=== PATIENT | female | born 1990 | race American Indian/Alaskan Native ===

== ENCOUNTER 2018-03-04 12:57 | Emergency (ER) | payer MEDICAID ==
[2018-03-04 13:06] VITALS: BP 131/80
--- NOTE | 2018-03-04 15:09 | Emergency Department Report ---
ED Shortness of Breath HPI - General Chief Complaint: Dyspnea/Respdistress Stated Complaint: SOB Source: patient Mode of arrival: Ambulatory Limitations: No Limitations - History of Present Illness Initial Comments: Pratima is a healthy 28-year-old female who presents with chest tightness and shortness of breathafter smoking Black and mild cigar and taking a pill of Zoloft. She started taking Zoloft 12 days ago on the for fluctuating moods. She's been very angry and irritable for the last year after the . Child. She was concern for depression. Her mother and life partner both have witnessed severe mood swings. 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 She did consider taking oral contraceptives. However she does not feel that she could adhere to this form of control without getting . Chest pain and chest tightness and shortness of breath resolved. She felt as if something was squeezing the air out of her. MD Complaint: shortness of breath, chest pain -: Sudden, hour(s) (1) Severity: moderate Quality: other (tightness) Improves With: rest Worsens With: nothing - Related Data Allergies Allergy/AdvReac Type Severity Reaction Status Date / Time No Known Allergies Allergy Unverified 03/04/18 13:06 ED Review of Systems ROS: Stated complaint: SOB Other details as noted in HPI Comment: All other systems reviewed and negative Constitutional: denies: fever, malaise Respiratory: denies: cough Cardiovascular: chest pain. denies: palpitations ED Past Medical Hx - Past Medical History Previous Medical History?: No - Surgical History Past Surgical History?: No - Social History Smoking Status: Current Every Day Smoker Substance Use Type: None ED Physical Exam - General Limitations: No Limitations General appearance: alert, in no apparent distress - Head Head exam: Present: atraumatic, normocephalic - Eye Eye exam: Present: normal appearance - ENT ENT exam: Present: mucous membranes moist - Neck Neck exam: Present: normal inspection - Respiratory Respiratory exam: Present: normal lung sounds bilaterally. Absent: respiratory distress, wheezes, rales, rhonchi - Cardiovascular Cardiovascular Exam: Present: regular rate, normal rhythm, normal heart sounds. Absent: systolic murmur, diastolic murmur, rubs, gallop - GI/Abdominal GI/Abdominal exam: Present: soft, normal bowel sounds. Absent: distended, tenderness, guarding, rebound - Extremities Exam Extremities exam: Present: normal inspection - Back Exam Back exam: Present: normal inspection - Neurological Exam Neurological exam: Present: alert, oriented X3 - Psychiatric Psychiatric exam: Present: normal affect, normal mood. Absent: depressed, anxious, flat affect, manic, homicidal ideation, suicidal ideation - Skin Skin exam: Present: warm, dry, intact, normal color. Absent: rash ED Course Vital Signs 03/04/18 03/04/18 13:01 14:54 Temperature 98 F Pulse Rate 68 Respiratory 16 19 Rate Blood Pressure 131/80 O2 Sat by Pulse 99 Oximetry ED Medical Decision Making - Medical Decision Making Ms. Estes presents with chest tightness and shortness of breath shortly after smoking tobacco and taking sertraline. I suspect adverse effect of both tobacco use and medication. No indication of PE or ACS. No indication of arrhythmia. I recommended coping mechanisms such as meditation andn exercise. Blanca smokes 2 blunts of marijuana daily. I have asked her to consider decreasing her use to 1 blunt a day. She may be a candidate for IUD. It appears that hormonal therapy is a contributing factor to her mood swings. Discharged home in stable condition. Ient Critical care attestation.: If time is entered above; I have spent that time in minutes in the direct care of this critically ill patient, excluding procedure time. ED Disposition Clinical Impression: Mood swing, Dyspnea Disposition: DC-01 TO HOME OR SELFCARE Is pt being admited?: No Does the pt Need Aspirin: No Condition: Stable Instructions: Mood Disorders (ED) Referrals: PRIMARY CARE, [Primary Care Provider] - 3-5 Days Time of Disposition: 15:10
== END 2018-03-04 15:25 | disposition home or self-care (01) ==
LOC: ED 12:57
DX: F39 Unspecified mood [affective] disorder (principal); R06.00 Dyspnea, unspecified; F17.200 Nicotine dependence, unspecified, uncomplicated
CPT/HCPCS: 99282

== ENCOUNTER 2019-04-07 19:56 | Emergency (ER) | payer MEDICAID ==
[2019-04-07 20:13] VITALS: BP 126/84
--- NOTE | 2019-04-07 20:13 | Event Note ---
ED Screening Note Date of service: 04/07/19 Time: 20:10 ED Screening Note: This is a 29 y.o. F. that presents to the ER with pelvic pressure, urinary frequency, urgency, and dysuria. LMP 03/28/2019, A0 Current cigarette and marijuana smoker This initial assessment/diagnostic orders/clinical plan/treatment(s) is/are subject to change based on patients health status, clinical progression and re- assessment by fellow clinical providers in the ED. Further treatment and workup at subsequent clinical providers discretion. Patient/guardian urged not to elope from the ED as their condition may be serious if not clinically assessed and managed. Initial orders include: UA and
[2019-04-07 21:25] LABS: Bacteria,Urine 1+ /HPF (Negative); Bilirubin,Urine NEG (Negative); Blood,Urine MOD (Negative); Color,Urine Yellow (Yellow); Mucus,Urine FEW /HPF; Urobilinogen,Urine < 2.0 mg/dL (<2.0)
[2019-04-07 21:26] LABS: HCG Qualitative,Urine Negative (Negative)
[2019-04-07 21:27] LABS: WBC,Urine > 182.0 /HPF (0.0-6.0)
== END 2019-04-07 22:49 | disposition left against medical advice (07) ==
LOC: ED 19:56
DX: R10.2 Pelvic and perineal pain (principal); R30.0 Dysuria
CPT/HCPCS: 81001; 81025; 99283